=== PATIENT | male | born 1935 | race Caucasian/White ===

== ENCOUNTER 2018-11-07 02:10 | Inpatient (IN) | payer OTHER ==
[~2018-11-07] VITALS: Ht 180.3 cm; Wt 76.8 kg
[~2018-11-07 02:10] MED LIST: ASPI-498 OR; DOC100C PO; FURO1TAB31 PO; GABA300C10 PO; LANS15CA21 PO; METO25TA5 PO; TEMA30CA PO; TRAM100T37 PO; warfarin; warfarin sodium PO
[2018-11-07] MEDS ORDERED: fentaNYL CITRATE 100 MCG/2 ML VL IV ONE (04:00)
[2018-11-07] MEDS ORDERED: ONDANSETRON HCL 4 MG/2 ML VIAL IV ONE ×2 (04:00→09:30)
[2018-11-07 05:10] LABS: Basophils # (auto) 0.1 uL; Basophils % (auto) 1.4 % (0.0-2.0); Eosinophils # (auto) 0.1 uL; Eosinophils % (auto) 2.6 % (0.0-7.0); Hematocrit 37.1 % (41.0-53.0); Lymphocytes # (auto) 0.9 uL; Lymphocytes % (auto) 17.1 % (10.0-50.0); Mean Corpuscular Hemoglobin 30.2 pg (28.0-32.0); Mean Corpuscular Hgb Conc. 32.4 g/dL (32.0-36.0); Mean Corpuscular Volume 93.2 fL (80.0-100.0); Monocytes # (auto) 0.5 uL; Monocytes % (auto) 9.6 % (0.0-12.0); Neutrophils # (auto) 3.5 uL; Neutrophils % (auto) 69.3 % (37.0-80.0); Nucleated Red Blood Cells % 0.1 %; Platelet Count (auto) 170 10^3/uL (140-450); Red Blood Cells 3.98 10^6/uL (4.5-5.90); Red Cell Distribution Width 17.3 % (11.8-14.3); White Blood Cell 5.1 10^3/uL (4.4-10.8)
[2018-11-07 05:14] LABS: INR 0.99 (0.9-1.15); Partial Thromboplastin Time 29.6 sec (23.64-32.05)
[2018-11-07 05:24] LABS: Albumin 3.9 g/dL (3.4-5.0); Calcium 9.4 mg/dL (8.5-10.1)
[2018-11-07 05:29] LABS: BUN/Creatinine Ratio 17.9; Bilirubin, Total 0.5 mg/dL (0.2-1.0); Total Protein 7.3 g/dL (6.4-8.2)
[2018-11-07] MEDS ORDERED: AMIODARONE HCL 150 MG in D5W 5% 100 ML IV ONE (06:15)
[2018-11-07] MEDS ORDERED: AMIODARONE HCL (50 MG/ ML) 3 ML VIAL IV ONE (06:25)
[2018-11-07 06:26] LABS: Potassium 7.2 mmol/L (3.5-5.1)
[2018-11-07] MEDS ORDERED: CALCIUM CHL 100MG/ML 1,000 MG in D5W 5% 100 ML IV ONE ×4 (07:00→22:00)
[2018-11-07] MEDS ORDERED: ALBUTEROL SULF 2.5 MG/0.5ML(0.5%) NEB SOLN NEB ONE (07:00)
[2018-11-07] MEDS ORDERED: InsuLIN REG 1unit/0.01ml Soln (100units/ml) IV ONE ×3 (07:00→22:00)
[2018-11-07] MEDS ORDERED: DEXTROSE (50%) 50ML SYRG IV ONE ×3 (07:00→22:00)
[2018-11-07] MEDS ORDERED: SODIUM BICARBONATE 8.4 % INJ 50ML VIAL IV ONE ×2 (07:00→14:30)
[2018-11-07] MEDS ORDERED: SODIUM CHLORIDE 0.9% 250 ML IV ONE (07:15)
[2018-11-07 08:15] LABS: Basophils # (auto) 0 uL; Basophils % (auto) 0.6 % (0.0-2.0); Eosinophils # (auto) 0 uL; Eosinophils % (auto) 0.6 % (0.0-7.0); Hematocrit 35.7 % (41.0-53.0); Hemoglobin 11.9 g/dL (13.5-17.5); Lymphocytes # (auto) 1.3 uL; Lymphocytes % (auto) 19.8 % (10.0-50.0); Mean Corpuscular Hemoglobin 30.1 pg (28.0-32.0); Mean Corpuscular Hgb Conc. 33.4 g/dL (32.0-36.0); Mean Corpuscular Volume 90.2 fL (80.0-100.0); Monocytes # (auto) 0.7 uL; Monocytes % (auto) 10.9 % (0.0-12.0); Neutrophils # (auto) 4.6 uL; Neutrophils % (auto) 68.1 % (37.0-80.0); Nucleated Red Blood Cells % 0.1 %; Platelet Count (auto) 180 10^3/uL (140-450); Red Blood Cells 3.95 10^6/uL (4.5-5.90); Red Cell Distribution Width 16.8 % (11.8-14.3); White Blood Cell 6.7 10^3/uL (4.4-10.8)
[2018-11-07 08:28] LABS: Albumin 3.8 g/dL (3.4-5.0); BUN/Creatinine Ratio 17.2
[2018-11-07 08:30] LABS: Bilirubin, Total 0.5 mg/dL (0.2-1.0); Total Protein 7.2 g/dL (6.4-8.2)
[2018-11-07 08:37] LABS: Potassium 7.8 mmol/L (3.5-5.1)
[2018-11-07] MEDS ORDERED: HYDROmorphone HCL 2 MG/ML VL IV ONE ×2 (08:45→09:30)
[2018-11-07] MEDS ORDERED: ALUM & MAG HYDROX-SIMETH LIQ(MAALOX) 30 ML PO ONE (08:45)
[2018-11-07] MEDS ORDERED: SODIUM ZIRCONIUM CYCL 10 GM PAK PO ONE (08:45)
[2018-11-07] MEDS ORDERED: HEPARIN DRIP/D5W 100UNITS/ML 250 ML IV SCH (11:27)
[2018-11-07] MEDS ORDERED: HEPARIN SODIUM (PORCINE) 5000 UNITS/ML 1ML VIAL IV ONE (11:30)
[2018-11-07] MEDS ORDERED: ONDANSETRON HCL 4 MG/2 ML VIAL IV PRN (11:30)
[2018-11-07] MEDS ORDERED: NITROGLYCERIN 0.4 MG SL TAB SL PRN (11:30)
[2018-11-07] MEDS ORDERED: SODIUM CHLORIDE 0.9% 1,000 ML IV ONE (11:30)
[2018-11-07] MEDS ORDERED: ACETAMINOPHEN 325 MG TAB PO PRN (11:30)
[2018-11-07] MEDS ORDERED: traMADol HCL 50 MG TAB PO PRN (11:30)
[2018-11-07] MEDS: METOPROLOL TARTRATE 25 MG TAB PO SCH ×2 (12:06→22:00)
[2018-11-07 13:11] LABS: BUN/Creatinine Ratio 17.6; Calcium 9.5 mg/dL (8.5-10.1)
[2018-11-07 13:18] LABS: Potassium 6.5 mmol/L (3.5-5.1)
[2018-11-07 13:30] LABS: INR 1.07 (0.9-1.15); Partial Thromboplastin Time 29.9 sec (23.64-32.05)
[2018-11-07 14:08] LABS: Creatinine, Urine 113 mg/dL (30.0-125.0); Sodium Urine 83 mmol/L (40-220)
[2018-11-07 14:10] LABS: Urine Bacteria FEW /hpf (None Seen); Urine Blood 1+ /uL (Negative); Urine Hyaline Cast FEW /lpf (0 - 2); Urine Mucus FEW (None Seen); Urine Specific Gravity 1.016 (1.001-1.035); Urine WBC 12 /hpf (0 - 3)
[2018-11-07] MEDS: HEPARIN DRIP/D5W 100UNITS/ML 250 ML IV SCH (14:12)
[2018-11-07] MEDS ORDERED: SODIUM BICARBONATE 50ML VIAL 50 ML in SOD CHL 0.45% 1,000 ML IV SCH (14:15)
[2018-11-07] MEDS: BUMETANIDE 2.5mg/10ml (0.25 mg/ml) INJ IV SCH (16:09)
[2018-11-07] MEDS ORDERED: PROMETHAZINE HCL 25 MG/ML 1ML IV PRN (16:15)
[2018-11-07 20:08] LABS: Basophils # (auto) 0 uL; Basophils % (auto) 0.5 % (0.0-2.0); Eosinophils # (auto) 0 uL; Hematocrit 34.8 % (41.0-53.0); Hemoglobin 11.6 g/dL (13.5-17.5); Lymphocytes # (auto) 0.8 uL; Lymphocytes % (auto) 10.4 % (10.0-50.0); Mean Corpuscular Hemoglobin 30.3 pg (28.0-32.0); Mean Corpuscular Hgb Conc. 33.3 g/dL (32.0-36.0); Mean Corpuscular Volume 90.9 fL (80.0-100.0); Monocytes # (auto) 0.9 uL; Monocytes % (auto) 11.5 % (0.0-12.0); Neutrophils % (auto) 77.6 % (37.0-80.0); Platelet Count (auto) 170 10^3/uL (140-450); Red Blood Cells 3.83 10^6/uL (4.5-5.90); Red Cell Distribution Width 16.8 % (11.8-14.3); White Blood Cell 7.7 10^3/uL (4.4-10.8)
[2018-11-07 20:27] LABS: BUN/Creatinine Ratio 17.2; Magnesium 1.8 mg/dL (1.6-2.6)
[2018-11-07 20:38] LABS: Potassium 6.8 mmol/L (3.5-5.1)
[2018-11-07] MEDS: SODIUM BICARBONATE 50ML VIAL 50 ML in SOD CHL 0.45% 1,000 ML IV SCH (21:58)
[2018-11-07] MEDS ORDERED: BUMETANIDE 1mg/4ml VIAL (0.25mg/ml) IV ONE (22:00)
[2018-11-07] MEDS ORDERED: CALCIUM CHL(10%) 100MG/ML 10ML VIAL IV ONE (22:08)
[2018-11-07] MEDS ORDERED: BUMETANIDE 1mg/4ml VIAL (0.25mg/ml) ONE (22:16)
[2018-11-07] MEDS: SODIUM ZIRCONIUM CYCL 10 GM PAK PO SCH (22:32)
[2018-11-08] VITALS (63 sets, daily range): BP systolic 88–123; BP diastolic 46–84
[2018-11-08] MEDS: SODIUM BICARBONATE 50ML VIAL 50 ML in SOD CHL 0.45% 1,000 ML IV SCH ×2 (01:36→22:00)
[2018-11-08 02:54] LABS: INR 1.02 (0.9-1.15); Partial Thromboplastin Time 46.8 sec (23.64-32.05)
--- NOTE | 2018-11-08 05:30 | NUR ---
Pt being admitted to ICU ESTELLE MCGEE admitted to ICU via gurney on cardiac monitor technician, and portable 4L 02 via nasal cannula. Patient transfered to bed, connected to ICU monitoring and oxygen, and weighed by bedscale. Patient oriented to NONA LEE,primary RN, unit, room, bed, and unit policies regarding patient care and visiting hours.Alexander hung to gravity on bed rail. Right subclavian iv - clean/dry/intact. Repositioned for comfort. All questions and concerns addressed, patient verbalized understanding. NOTE:
[2018-11-08 06:10] LABS: Basophils # (auto) 0 uL; Basophils % (auto) 0.4 % (0.0-2.0); Eosinophils # (auto) 0 uL; Eosinophils % (auto) 0.2 % (0.0-7.0); Hematocrit 34.3 % (41.0-53.0); Hemoglobin 11.3 g/dL (13.5-17.5); Lymphocytes # (auto) 1.1 uL; Lymphocytes % (auto) 14.8 % (10.0-50.0); Mean Corpuscular Hemoglobin 29.9 pg (28.0-32.0); Mean Corpuscular Hgb Conc. 32.9 g/dL (32.0-36.0); Mean Corpuscular Volume 90.8 fL (80.0-100.0); Monocytes # (auto) 0.9 uL; Monocytes % (auto) 12.6 % (0.0-12.0); Neutrophils # (auto) 5.3 uL; Nucleated Red Blood Cells % 0.1 %; Platelet Count (auto) 166 10^3/uL (140-450); Red Blood Cells 3.78 10^6/uL (4.5-5.90); Red Cell Distribution Width 16.7 % (11.8-14.3); White Blood Cell 7.3 10^3/uL (4.4-10.8)
[2018-11-08 06:36] LABS: Albumin 3.3 g/dL (3.4-5.0); Magnesium 1.9 mg/dL (1.6-2.6)
[2018-11-08 06:38] LABS: Bilirubin, Total 0.8 mg/dL (0.2-1.0); Total Protein 6.4 g/dL (6.4-8.2)
[2018-11-08 06:44] LABS: Potassium 7.3 mmol/L (3.5-5.1)
[2018-11-08] MEDS ORDERED: CALCIUM CHL 100MG/ML 1,000 MG in D5W 5% 100 ML IV ONE (07:00)
[2018-11-08] MEDS ORDERED: DEXTROSE (50%) 50ML SYRG IV ONE ×3 (07:00→13:15)
[2018-11-08] MEDS ORDERED: InsuLIN REG 1unit/0.01ml Soln (100units/ml) SC ONE (07:00)
[2018-11-08] MEDS ORDERED: InsuLIN REG 1unit/0.01ml Soln (100units/ml) ONE (07:02)
[2018-11-08] MEDS ORDERED: DEXTROSE 50% SYRINGE 50 ML IV ONE (07:02)
[2018-11-08] MEDS ORDERED: CALCIUM GLUC 4.65 MEQ/10ML 10 ML IV ONE (07:07)
[2018-11-08] MEDS: SODIUM ZIRCONIUM CYCL 10 GM PAK PO SCH ×3 (07:15→21:59)
--- NOTE | 2018-11-08 07:25 | NUR ---
OPENING NOTE SHIFT REPORT RECEIVED AND ASSUMED CARE OF PT FROM NONA RN
--- NOTE | 2018-11-08 07:30 | NUR ---
REPORT GIVEN TO DAY SHIFT RN.
--- NOTE | 2018-11-08 08:10 | NUR ---
DR. THOMSON CALLED UPDATED ON PT STATUS AND LABS-K+ 7.3. ORDERS RECEIVED. WILL CONTINUE TO MONITOR
[2018-11-08] MEDS ORDERED: InsuLIN REG 1unit/0.01ml Soln (100units/ml) IV ONE ×2 (08:15→13:15)
[2018-11-08] MEDS ORDERED: BUMETANIDE INJECTION 12.5 MG in GIVE UN-DILUTED 0 ML IV SCH ×2 (08:15→17:45)
[2018-11-08 09:09] LABS: Uric Acid 5.9 mg/dL (3.5-7.2)
[2018-11-08] MEDS: BUMETANIDE 2.5mg/10ml (0.25 mg/ml) INJ IV SCH (09:33)
--- NOTE | 2018-11-08 09:40 | NUR ---
DR. THOMSON AT BEDSIDE SPOKE WITH FAMILY AT BEDSIDE. UPDATED ON PT STATUS. VERBALIZES UNDERSTANDING OF PT STATUS AND PLAN. ORDERS RECEIVED
[2018-11-08] MEDS ORDERED: DOCUSATE SOD 100 MG CAP PO SCH (10:00)
[2018-11-08] MEDS ORDERED: FLUDROCORTISONE ACETATE 0.1 MG TAB PO SCH (10:00)
[2018-11-08 10:15] LABS: INR 1.04 (0.9-1.15); Partial Thromboplastin Time 57.5 sec (23.64-32.05)
[2018-11-08] MEDS: PANTOPRAZOLE 40 MG TAB PO SCH (10:26)
[2018-11-08] MEDS: METOPROLOL TARTRATE 25 MG TAB PO SCH ×2 (10:26→22:00)
[2018-11-08] MEDS: ASPirin-EC 81 mg tab PO SCH (10:26)
--- NOTE | 2018-11-08 10:57 | NUR ---
PTT 57.5 NO BOLUS/NO CHANGE PER PROTOCOL
--- NOTE | 2018-11-08 12:00 | NUR ---
SPOKE WITH DR. THOMSON AWARE OF K+ 6.6 TRENDING DOWN. CONTINUE ON CURRENT PLAN. REPEAT LABS ORDERED. NO OTHER ORDERS AT THIS TIME
[2018-11-08] MEDS: HEPARIN DRIP/D5W 100UNITS/ML 250 ML IV SCH (12:19)
[2018-11-08 12:55] LABS: Creatinine, Urine 113 mg/dL (30.0-125.0); Sodium Urine 83 mmol/L (40-220)
[2018-11-08 12:58] LABS: BUN/Creatinine Ratio 18.7; Calcium 10.2 mg/dL (8.5-10.1)
[2018-11-08 13:00] LABS: Potassium 6.6 mmol/L (3.5-5.1)
--- NOTE | 2018-11-08 13:00 | NUR ---
PAGED DR. RODRIGUEZ REGARDING TROPONIN LEVEL
[2018-11-08] MEDS ORDERED: ALBUTEROL SULF 2.5 MG/0.5ML(0.5%) NEB SOLN NEB ONE (13:15)
[2018-11-08] MEDS ORDERED: DOPamine 1600MCG/ML D5W 250 ML IV SCH (14:15)
--- NOTE | 2018-11-08 14:30 | NUR ---
RECEIVED ACCURATE LIST OF MEDICATIONS FROM SPOUSE
--- NOTE | 2018-11-08 15:40 | NUR ---
TURNED OFF DOPAMINE DUE TO INCREASED HEART RATE
[2018-11-08] MEDS ORDERED: LACTULOSE 20Gm/30ML SOLN PO ONE (16:15)
[2018-11-08] MEDS ORDERED: POLYETHYLENE GLYCOL 17 GM PWDR PO PRN (16:15)
--- NOTE | 2018-11-08 17:00 | NUR ---
PTT 58.4 NO CHANGE NO BOLUS PER PROTOCOL 2ND THERAPEUTIC PTT LEVEL
[2018-11-08] MEDS: DOCUSATE SOD 100 MG CAP PO SCH ×2 (17:12→21:59)
[2018-11-08 17:24] LABS: INR 1.07 (0.9-1.15); Partial Thromboplastin Time 58.4 sec (23.64-32.05)
--- NOTE | 2018-11-08 17:25 | NUR ---
PICTURES TAKEN OF SKIN ISSUES PT ARRIVED TO UNIT WITH
[2018-11-08 17:28] LABS: Calcium 9.7 mg/dL (8.5-10.1); Potassium 4.9 mmol/L (3.5-5.1)
[2018-11-08 17:30] LABS: BUN/Creatinine Ratio 17.9
--- NOTE | 2018-11-08 17:42 | NUR ---
SPOKE WITH DR. THOMSON REGARDING PT LABS. ORDERS RECEIVED
[2018-11-08 17:47] LABS: Albumin 3.1 g/dL (3.4-5.0); Bilirubin, Direct 0.2 mg/dL (0-0.2); Magnesium 1.6 mg/dL (1.6-2.6)
[2018-11-08 17:49] LABS: Bilirubin, Total 0.6 mg/dL (0.2-1.0); Total Protein 6.3 g/dL (6.4-8.2)
--- NOTE | 2018-11-08 18:44 | NUR ---
SPOKE WITH DR. THOMSON ORDERS RECEIVED
--- NOTE | 2018-11-08 19:00 | NUR ---
opening note ASSUMED CARE OF PATIENT AT THIS TIME. REPORT RECEIVED FROM DAY SHIFT RN. POC REVIEWED. HEAD TO TOE ASSESSMENT COMPLETE, SEE INTERVENTION SPREADSHEET FOR COMPLETE DETAILS. RECEIVED PT AWAKE AND ALERT X3 WITH PERIODS OF CONFUSION OR INAPPROPRIATE RESPONSES. PT FOLLOWS COMMANDS, PT PLEASANT AND COOPERATIVE. ABLE TO ASSIST WITH TURNS. CALL LIGHT WITHIN REACH. SAFETY PRECAUTIONS IN PLACE. RECEIVED PT ON 4 LTS NC. PT DESATS WHEN TURNING AND TALKING. IV SITE BENIGN. BED LOCKED AND IN LOWEST POSITIONS. PT DENIES PAIN. VSS. WILL MONITOR PT CLOSELY.
--- NOTE | 2018-11-08 19:05 | NUR ---
CLOSING NOTE SHIFT REPORT GIVEN AND CARE ENDORSED TO JANICE PAUL
[2018-11-08 22:58] LABS: INR 1.05 (0.9-1.15); Partial Thromboplastin Time 59.8 sec (23.64-32.05)
--- NOTE | 2018-11-08 23:47 | NUR ---
BED ANDUJAR PT PLACED ON BED ANDUJAR. HAD SMALL BROWN, LIQUID BM. PT CLEANED AND REPOSITIONED. PT TOLERATED WELL.
--- NOTE | 2018-11-08 23:49 | NUR ---
PTT RESULT 59.9. NO BOLUS NO CHANGE
[2018-11-09] VITALS (78 sets, daily range): BP systolic 76–113; BP diastolic 38–69
--- NOTE | 2018-11-09 04:00 | NUR ---
Bed bath pt had smear of bm. Pt cleaned and repositioned. Pt tolerated well.
[2018-11-09 04:43] LABS: Basophils # (auto) 0 uL; Basophils % (auto) 0.7 % (0.0-2.0); Eosinophils # (auto) 0.1 uL; Hematocrit 31.1 % (41.0-53.0); Hemoglobin 10.5 g/dL (13.5-17.5); Lymphocytes # (auto) 1.3 uL; Lymphocytes % (auto) 19.4 % (10.0-50.0); Mean Corpuscular Hemoglobin 30.3 pg (28.0-32.0); Mean Corpuscular Hgb Conc. 33.9 g/dL (32.0-36.0); Mean Corpuscular Volume 89.3 fL (80.0-100.0); Monocytes # (auto) 0.9 uL; Neutrophils # (auto) 4.4 uL; Neutrophils % (auto) 64.9 % (37.0-80.0); Nucleated Red Blood Cells % 0.1 %; Platelet Count (auto) 145 10^3/uL (140-450); Red Blood Cells 3.48 10^6/uL (4.5-5.90); Red Cell Distribution Width 16.4 % (11.8-14.3); White Blood Cell 6.8 10^3/uL (4.4-10.8)
[2018-11-09 05:09] LABS: Magnesium 1.4 mg/dL (1.6-2.6); Potassium 4.7 mmol/L (3.5-5.1)
--- NOTE | 2018-11-09 05:15 | NUR ---
status change/confusion pt insisting that he needs to home. Pt states, "I don't feels safe here, I've been hearing what they are saying out there and it's not good." Pt wants to call police to come get him. Pt reassured that pt is in the hospital and the pt is safe. Spoke with daughter on the phone. Daughter will come and visit him soon.
[2018-11-09 05:16] LABS: BUN/Creatinine Ratio 18.1; Bilirubin, Direct 0.2 mg/dL (0-0.2); Bilirubin, Total 0.7 mg/dL (0.2-1.0); Calcium 9.1 mg/dL (8.5-10.1); Phosphorus 2.7 mg/dL (2.5-4.90); Total Protein 5.9 g/dL (6.4-8.2)
[2018-11-09] MEDS: DOCUSATE SOD 100 MG CAP PO SCH ×3 (06:00→22:00)
--- NOTE | 2018-11-09 06:05 | NUR ---
daughter at bedside to visit with patient. All questions addressed at this time.
--- NOTE | 2018-11-09 07:05 | NUR ---
OPENING NOTE SHIFT REPORT GIVE BACK RECEIVED AND ASSUMED CARE OF PT FROM JANICE PUAL
--- NOTE | 2018-11-09 07:30 | NUR ---
BUMEX TURNED OFF DUE TO LOW BLOOD PRESSURE. DR. THOMSON NOTIFIED AND AWARE
[2018-11-09] MEDS: SODIUM BICARBONATE 50ML VIAL 50 ML in SOD CHL 0.45% 1,000 ML IV SCH ×2 (09:26→23:22)
[2018-11-09] MEDS: HEPARIN DRIP/D5W 100UNITS/ML 250 ML IV SCH (09:41)
[2018-11-09] MEDS: METOPROLOL TARTRATE 25 MG TAB PO SCH ×2 (10:00→22:00)
--- NOTE | 2018-11-09 10:15 | NUR ---
DR. SCHAFFER AT BEDSIDE ORDERS RECEIVED
[2018-11-09] MEDS: BUMETANIDE 1 MG TAB PO SCH (10:45)
--- NOTE | 2018-11-09 11:28 | NUR ---
NUTRITION CONSULT/ASSESSMENT NOTES Please refer to link notes of nutrition screen form filed under the intervention section of the plan of care for further details. Est. Needs: 1900 kcal to 2300 kcal (25-30 kcal/kgBW), 61 gms to 76 gms pro (0.8-1.0 gms/kgBW). Will continue to monitor pertinent labs and reassess nutrient need prn Thank you for this consult. Addendum: 11/09/18 at [address] Amended: Links added.
[2018-11-09] MEDS: ASPirin-EC 81 mg tab PO SCH (11:50)
[2018-11-09] MEDS: PANTOPRAZOLE 40 MG TAB PO SCH (11:50)
[2018-11-09] MEDS: FLUDROCORTISONE ACETATE 0.1 MG TAB PO SCH (11:51)
[2018-11-09] MEDS: MAGNESIUM SULFATE 1GM/100ML 100 ML IV SCH ×2 (11:51→14:01)
--- NOTE | 2018-11-09 12:00 | NUR ---
EKG DONE FOR RHYTHM OF A FIB ON MONITOR.
--- NOTE | 2018-11-09 12:07 | NUR ---
DR. MENDOZA AT BEDSIDE ORDERS RECEIVED
--- NOTE | 2018-11-09 13:51 | NUR ---
Assessment Pt is an 83 yr old alert and oriented male. Pt in ICU attended by his step-daughter and . Pt's step-daughter, Mesha, is his person of contact at [phone]. Pt lives with Nephew and . Pt's is on Hospice services. Pt's step-daughter cooks and his niece cleans. Pt ambulates with the assistance of a walker or cane, pt uses in-home 02. Pt has no interest in advanced directive at this time. Pt receives VA benefits. Pt has acute kidney failure and states that he is getting close to the point of getting put on dialysis. Pt's step-daughter brought up the conversation about hospice services but the pt feels that he is not ready for those services but would benefit from help. RENU educated pt on the Aid and attendance program that helps veterans get caregivers. Pt was very interested. RENU called Josefa Martinez to connect her to the pt for help with the program. RENU also educated the patient of the uses of HH. Pt expressed interest in those services if he qualifies. RENU informed pt's nurse. Further d/c needs will be assessed closer to d/c. Addendum: 11/09/18 at 1403 by ELIS MCGOWAN Amended: Links added.
--- NOTE | 2018-11-09 14:15 | NUR ---
SPOKE WITH DR. JORDAN REGARDING PT'S HEART RATE AND RHYTHM. ORDERS RECEIVED
--- NOTE | 2018-11-09 14:15 | NUR ---
DR. JORDAN AWARE OF PT'S RHYTHM-SINUS TACHYCARDIA/A FIB AND LOW BLOOD PRESSURE. DIGOXIN ORDERED BUT HELD DUE TO PT'S LOW BP
[2018-11-09] MEDS ORDERED: DIGOXIN 0.25 MG TAB PO ONE (14:30)
[2018-11-09] MEDS ORDERED: FURO20TA3 PO (14:46)
[2018-11-09] MEDS ORDERED: APIX2.5T PO (14:46)
[2018-11-09] MEDS ORDERED: TAMS0.4C36 PO (14:46)
[2018-11-09] MEDS ORDERED: LISI2.5T47 PO (14:46)
[2018-11-09] MEDS ORDERED: RANI150C11 PO (14:46)
[2018-11-09] MEDS ORDERED: ATOR1TAB PO (14:46)
[2018-11-09] MEDS ORDERED: METO-169 PO (14:46)
[2018-11-09] MEDS ORDERED: ISOS30TA4 PO (14:46)
--- NOTE | 2018-11-09 15:25 | NUR ---
MODERATE SOFT BM PT CLEANSED WITH SOAP AND WATER. LINEN CHANGE
[2018-11-09] MEDS: NOREPINEPHRINE 8 MG/250ML KIT 250 ML IV SCH (17:34)
--- NOTE | 2018-11-09 19:05 | NUR ---
CLOSING NOTE SHIFT REPORT AND CARE ENDORSED TO NONA PAUL
--- NOTE | 2018-11-09 19:30 | NUR ---
OPENING SHIFT RECEIVED REPORT FROM DAY SHIFT RN. ASSUMED CARE OF PATIENT. PATIENT IN BED WATCHING TV WITH NO SIGNS OR SYMPTOMS OF SOB, PAIN OR DISTRESS. CURRENTLY ON 4L 02 NASAL CANNULA, 02 SAT - 95%. REORIENTED PATIENT TO ENVIRONMENT AND SITUATION. REPOSITIONED FOR COMFORT. BERG HUNG TO GRAVITY ON BED RAIL. RIGHT SUBCLAVIAN - CLEAN/DRY/INTACT. BED IN LOWEST POSITION, SIDE RAILS UPX2, CALL LIGHT WITHIN REACH. WILL CONTINUE TO MONITOR.
[2018-11-10] VITALS (36 sets, daily range): BP systolic 87–123; BP diastolic 47–76
[2018-11-10 03:51] LABS: Basophils # (auto) 0 uL; Basophils % (auto) 0.3 % (0.0-2.0); Eosinophils # (auto) 0.1 uL; Eosinophils % (auto) 1.8 % (0.0-7.0); Hematocrit 29.9 % (41.0-53.0); Hemoglobin 10.1 g/dL (13.5-17.5); Lymphocytes # (auto) 1.3 uL; Lymphocytes % (auto) 20.2 % (10.0-50.0); Mean Corpuscular Hemoglobin 30.3 pg (28.0-32.0); Mean Corpuscular Hgb Conc. 33.9 g/dL (32.0-36.0); Mean Corpuscular Volume 89.3 fL (80.0-100.0); Monocytes # (auto) 0.9 uL; Monocytes % (auto) 13.2 % (0.0-12.0); Neutrophils # (auto) 4.2 uL; Neutrophils % (auto) 64.5 % (37.0-80.0); Platelet Count (auto) 142 10^3/uL (140-450); Red Blood Cells 3.34 10^6/uL (4.5-5.90); Red Cell Distribution Width 16.1 % (11.8-14.3); White Blood Cell 6.6 10^3/uL (4.4-10.8)
[2018-11-10 04:17] LABS: Potassium 4.3 mmol/L (3.5-5.1)
[2018-11-10 04:22] LABS: INR 1.01 (0.9-1.15); Partial Thromboplastin Time 47.6 sec (23.64-32.05)
[2018-11-10 04:23] LABS: BUN/Creatinine Ratio 17.5; Magnesium 1.8 mg/dL (1.6-2.6)
[2018-11-10] MEDS: HEPARIN DRIP/D5W 100UNITS/ML 250 ML IV SCH (05:15)
--- NOTE | 2018-11-10 06:40 | NUR ---
HEPARIN GTT PTT -47.6, HEPARIN INCREASED PER PROTOCOL.
[2018-11-10] MEDS: DOCUSATE SOD 100 MG CAP PO SCH ×3 (06:44→22:00)
--- NOTE | 2018-11-10 07:00 | NUR ---
REPORT GIVEN, CARE ENDORSED TO DAY SHIFT RN.
--- NOTE | 2018-11-10 07:17 | NUR ---
SHIFT OPENING NOTE PATIENT AOX3, MOVING ALL EXTREMITIES AND ANSWERING QUESTIONS APPROPRIATELY. PATIENT ON 4LNC, LUNGS CLEAR THROUGHOUT. ABDOMEN SOFT AND NONTENDER, BERG DRAINING CLEAR, YELLOW URINE WITH BAG HUNG BELOW BLADDER. SKIN INTEGRITY SEE ASSESSMENT. PLAN OF CARE DISCUSSED WITH PATIENT WITH ALL QUESTIONS AND CONCERNS ADDRESSED AT THIS TIME
[2018-11-10] MEDS: SODIUM BICARBONATE 50ML VIAL 50 ML in SOD CHL 0.45% 1,000 ML IV SCH ×3 (09:43→17:54)
--- NOTE | 2018-11-10 09:45 | NUR ---
PARTIAL LINEN CHANGE PERFORMED AT THIS TIME
[2018-11-10] MEDS: METOPROLOL TARTRATE 25 MG TAB PO SCH ×2 (09:57→22:00)
[2018-11-10] MEDS: BUMETANIDE 1 MG TAB PO SCH (09:58)
[2018-11-10] MEDS: FLUDROCORTISONE ACETATE 0.1 MG TAB PO SCH (09:58)
[2018-11-10] MEDS: ASPirin-EC 81 mg tab PO SCH (09:58)
[2018-11-10] MEDS: PANTOPRAZOLE 40 MG TAB PO SCH (09:58)
[2018-11-10] MEDS ORDERED: BUMETANIDE 2.5mg/10ml (0.25 mg/ml) INJ IV SCH (10:00)
[2018-11-10 13:43] LABS: INR 1.03 (0.9-1.15); Partial Thromboplastin Time 48.3 sec (23.64-32.05)
--- NOTE | 2018-11-10 14:22 | NUR ---
DR. JORDAN PAGED AWAITING CALLBACK
--- NOTE | 2018-11-10 15:21 | NUR ---
DR. JORDAN CALLBACK ORDERS RECEIVED
--- NOTE | 2018-11-10 15:29 | NUR ---
DR. BEST AT BEDSIDE
--- NOTE | 2018-11-10 16:39 | NUR ---
[employer] PER FAMILY WISHES. SPOKE WITH DEIDRA REGARDING BUTTONHOLE MARKER TIME Addendum: 11/10/18 at 1720 by Mario Andrea RN WRONG PATIENT
[2018-11-10] MEDS: cefTRIAXone 1GM/50ML D5W 50 ML IV SCH (16:50)
[2018-11-10] MEDS ORDERED: WARFARIN SODIUM 5 MG TAB PO ONE (17:00)
[2018-11-10] MEDS: NOREPINEPHRINE 8 MG/250ML KIT 250 ML IV SCH (17:19)
--- NOTE | 2018-11-10 17:43 | NUR ---
PATIENT WAS UP WITH RN. PATIENT BECAME DIZZY AND WAS PLACED BACK IN BED. WILL ATTEMPT P.T. EVALUATION TOMORROW.
--- NOTE | 2018-11-10 18:52 | NUR ---
PATIENT TRANSFERRED TO [facility] VIA ACLS GUIDELINES AND ALL PATIENT BELONGINGS
--- NOTE | 2018-11-10 19:15 | NUR ---
Received Pt from ICU 110 to MARIA EUGENIA 263 Pt awake and alert. Breathing even and nonlabored, on O2 NC 4 LPM, no s/s of distress. Denied pain. TLC at right subclavian, tiny leaking observed, will continue to monitor. 3 ports flushed well, positive blood return. Alexander's catheter hung to gravity with clear yellowish urine. Bed in low position, call light with in reach, all alarms are audible, fall and safety precaution in place. Instruct on POC to Pt and call for help, will continue to monitor q1 and as needed. Pt asked to use a restroom for BM. Provided Pt with bedpan due to dizziness.
--- NOTE | 2018-11-10 19:25 | NUR ---
Desaturation, no s/s of distress POX showed 80's %. Pt breathing even and nonlabored, lungs sound clear, no s/s of distress. Pt moving hands and tried to use cell phone. Pt's fingers were cold. Increased O2NC 4LPM to 5LPM, will continue to monitor and change POX probe. Addendum: 11/10/18 at 2104 by Preet Burnette RN 2000pm POX probe changed. POX alternating from 80's to mid 90's sometimes due to movement of fingers. No s/s of distress. Pt asked to call his and tried to use room phone to contact his . Pt denied dinner, stated that he ate some sweets before transferred from ICU. Continue monitoring.
--- NOTE | 2018-11-10 19:40 | NUR ---
Elimination Pt passed a small amount of pasty brown stool. Cleaned blaine rectal area. Pt turned on bed by self well. Tolerated well. Continue care.
--- NOTE | 2018-11-10 22:05 | NUR ---
Condition update Pt lying on bed with eyes closed, arousal by voice. Breathing even and nonlabored, O2 NC 5 LPM, POX low 90's to mid 90's. BP slightly on low side, will hold BP med for now, see details in EMAR. Continue care.
--- NOTE | 2018-11-10 22:20 | NUR ---
Elimination Pt woke up and asked to use a restroom. Assisted Pt OOB with 2-person assist. Pt walked 2 steps to BSC, no dizziness, desaturation 80's with activities and room air. Connected Pt back to portable O2 6LPM. 2240pm Pt passed a moderate amount of soft brown BM. Pt tried to get up from the BSC by self despite instruction deportation examiner light use. Reminded Pt to call and do not get out of bed or BSC by self. Perirectal and perineal cleaned, z-guard applied. Pt back to bed with out incident. Pt had SOB with exertion. Fall and safety measures in place. Continue care.
[2018-11-11] VITALS (8 sets, daily range): BP systolic 106–120; BP diastolic 48–75
--- NOTE | 2018-11-11 | NUR ---
Condition update Pt slept, v/s and condition stable. Continue care.
--- NOTE | 2018-11-11 02:10 | NUR ---
Desaturation/ sleep apnea Pt in deep sleeping with periodic apneic episode, fluctuating of POX from 80's to 95%. Increased O2NC to 6LPM to help maintain POX. Other v/s and condition stable. Continue care.
--- NOTE | 2018-11-11 03:25 | NUR ---
Condition update Pt woke up, talked on the cellphone. Asked to use a restroom, assisted Pt with the bedpan. Pt did not pass BM, only gases. Refused AM care for now. Pt asked to do AM care later and Pt will let this nurse knows. Continue care.
[2018-11-11] MEDS: DOCUSATE SOD 100 MG CAP PO SCH ×2 (06:00→13:27)
[2018-11-11] MEDS: SODIUM BICARBONATE 50ML VIAL 50 ML in SOD CHL 0.45% 1,000 ML IV SCH (06:21)
[2018-11-11 06:27] LABS: Basophils # (auto) 0.1 uL; Basophils % (auto) 0.9 % (0.0-2.0); Eosinophils # (auto) 0.2 uL; Eosinophils % (auto) 3.8 % (0.0-7.0); Hemoglobin 9.7 g/dL (13.5-17.5); Lymphocytes # (auto) 0.9 uL; Lymphocytes % (auto) 15.2 % (10.0-50.0); Mean Corpuscular Hemoglobin 30.6 pg (28.0-32.0); Mean Corpuscular Hgb Conc. 33.5 g/dL (32.0-36.0); Mean Corpuscular Volume 91.3 fL (80.0-100.0); Monocytes # (auto) 0.9 uL; Monocytes % (auto) 14.8 % (0.0-12.0); Neutrophils # (auto) 3.9 uL; Neutrophils % (auto) 65.3 % (37.0-80.0); Platelet Count (auto) 142 10^3/uL (140-450); Red Blood Cells 3.18 10^6/uL (4.5-5.90); Red Cell Distribution Width 16.7 % (11.8-14.3)
[2018-11-11 06:45] LABS: BUN/Creatinine Ratio 18.5; Calcium 7.9 mg/dL (8.5-10.1); Magnesium 1.7 mg/dL (1.6-2.6); Potassium 3.4 mmol/L (3.5-5.1)
[2018-11-11 07:01] LABS: INR 1.06 (0.9-1.15)
--- NOTE | 2018-11-11 08:00 | NUR ---
Opening Shift Note Assumed care of patient, laying in bed, eyes closed, arousable to voice, oriented x2, re-oriented to time and place. No S/S of distress/SOB on exertion or pain. Patient on 6 LPM oxygen via nasal, saturation 99%, decreased oxygen to 4 LPM. See interventions for complete assessment. Bed locked on low position, side rails up x2, bed alarms on at all times, call ferrell within reach, instructed on POC and to call for assist PRN, will continue to monitor for changes Q1hr and PRN.
[2018-11-11] MEDS: BUMETANIDE 1 MG TAB PO SCH (09:13)
[2018-11-11] MEDS: FLUDROCORTISONE ACETATE 0.1 MG TAB PO SCH (09:13)
[2018-11-11] MEDS: METOPROLOL TARTRATE 25 MG TAB PO SCH (09:14)
[2018-11-11] MEDS: ASPirin-EC 81 mg tab PO SCH (09:14)
[2018-11-11] MEDS: PANTOPRAZOLE 40 MG TAB PO SCH (09:14)
--- NOTE | 2018-11-11 09:37 | NUR ---
Patient ambulated one lap around nurse station with [place] PT using walker, fall precautions in placed. Patient's oxygen saturation dropped to low 80's after ambulation. Patient sat on bedside chair and connected to 4 LPM oxygen via nasal cannula, patient's saturation went back up to 90's. Will continue to monitor.
[2018-11-11] MEDS ORDERED: ENOXAPARIN SOD 30 MG/0.3 ML SYRINGE SC SCH (10:00)
--- NOTE | 2018-11-11 10:53 | NUR ---
Nutrition Follow-up Notes Wt.: 76.8 kg PO intake remains variable with intake between 0-100% x 3 days, with improvement today. Currently on soft diet with renal diet (2 gm K) and is tolerating well without reported GI distress. No reported difficulty chewing or swallowing with current diet texture. Est. Needs: 1900 kcal to 2300 kcal (25-30 kcal/kgBW), 61 gms to 76 gms pro (0.8-1.0 gms/kgBW). Will continue to monitor pertinent labs and reassess nutrient need prn Labs: K 3.4L, BUN 43H, Cr 2.32H, Ca 7.9L, ALB 3L, POC Gluc <180 mg/dL Skin: Jose 14, mod risk, hyperpigmentation of the BLE's GI: Last BM x 1 today PES: 1.) Altered nutrition related lab values RT acute/chronic medical condition AEB hyperglycemia, elev. renal labs, low ALT, Mg, elev.Trop I and mild hypoalbuminemia (ongoing) 2.) Increased nutrient needs RT current/chronic medical status AEB mild hypoalbuminemia, NPO (ongoing) Monitor: Weight trends, PO intake >75% estimated needs, skin integrity, GI tract function, labs (renal) F/U: MR 3-5 days Rec. 1) Continue Renal diet 2 gm K w/soft texture as ordered and as tolerated. 2) If PO intake <75% by following assessment, consider ONS Ensure Enlive BID w/meals for supplementation 3) Continue POC as ordered
--- NOTE | 2018-11-11 12:00 | NUR ---
Patient's Guillermina and daughter Mesha at bedside, updated on patient's status and POC. Family verbalized understanding. All questions and concerns addressed.
[2018-11-11] MEDS ORDERED: POTASSIUM EFFERVESENT TAB 25 MEQ PO ONE (12:45)
--- NOTE | 2018-11-11 13:00 | NUR ---
Dr Lui at bedside, updated on patient's status. Informed Dr Childs is asking clearance to discharge patient from Nephrology standpoint. verbalized understanding. Patient seen and examined and states "Yes, patient may go home but he needs to see me two weeks after discharge with BMP report." Will inform Dr Childs.
--- NOTE | 2018-11-11 13:25 | NUR ---
Paged Dr Guerrero and called back, informed Dr Childs is asking discharge clearance from cardiology standpoint, verbalized understanding and states "Yes, patient is ok to go home." Will inform Dr Childs.
--- NOTE | 2018-11-11 13:28 | NUR ---
Colace held at this time, patient already had two soft bowel movement since beginning of shift.
[2018-11-11] MEDS ORDERED: DOCU100C8 PO (16:31)
[2018-11-11] MEDS ORDERED: MET25T PO (16:31)
[2018-11-11] MEDS ORDERED: FLU01T PO (16:31)
[2018-11-11] MEDS ORDERED: CEPH250C PO ×2 (16:31→16:33)
[2018-11-11] MEDS ORDERED: WARPRX PO (16:31)
[2018-11-11] MEDS ORDERED: BUME1TAB3 PO (16:31)
--- NOTE | 2018-11-11 16:31 | NUR ---
Discharge planning per consult, patient has orders for Home Health. Referral faxed to [facility], the [facility], and [facility]erral dept. Placed a follow up call to [facility], spoke with Elyssa, and she advised they could not accept because they do not have the coverage, and are currently overbooked. Will follow up with Eddi on 11.12.18 regarding alternative home health agencies they are contracted with. Addendum: 11/11/18 at 1635 by LANDY RODRIGUEZ SS Amended: Links added. Addendum: 11/11/18 at 1644 by LANDY RODRIGUEZ SS Disregard above note....entered on wrong patient. [facility] WILL accept this patient, request for auth was sent to ALON[facility].
--- NOTE | 2018-11-11 16:43 | NUR ---
D/C Planning Per consult for Home health for safety evaluation and physical therapy. Contacted [facility]:( [phone]) Fax:) faxed medical records. Per Elyssa from [facility] Pt has been accepted and service to start within 48hrs upon d/c day. Contacted [facility] ph:) Fax:) faxed medical records. Followed up called to [facility] spoke to Elyssa. Elyssa from [facility] advised me authorization was received. Addendum: 11/11/18 at 1652 by FERNY SARAH Amended: Links added.
[2018-11-11] MEDS ORDERED: WARFARIN SODIUM 5 MG TAB PO ONE (17:00)
--- NOTE | 2018-11-11 17:08 | NUR ---
Spoke to Wine Steward/Stewardess Baylee over the phone, confirmed if home health is already set up and if patient can be discharge home, watch caser states "Yes, everything is already set up with [facility], patient can go home."
--- NOTE | 2018-11-11 17:27 | NUR ---
Spoke to patient's daughter Mesha and informed patient has a discharge order with home health already set up, daughter verbalized understanding and states "Ok. I will be there to pick him up."
[2018-11-11] MEDS: cefTRIAXone 1GM/50ML D5W 50 ML IV SCH (17:59)
--- NOTE | 2018-11-11 18:20 | NUR ---
Paged Dr Hightower and called back. Received telephone order to discontinue engel catheter and PICC line. Orders read back and verified. Will carry out.
--- NOTE | 2018-11-11 18:30 | NUR ---
Engel catheter dc'd Order to discontinue engel catheter. Engel dc'd with clean technique following deflation of balloon. Patient tolerated well with no complaints of pain. Continue care.
--- NOTE | 2018-11-11 18:36 | NUR ---
Discharge MRSA nasal swab sent to lab
--- NOTE | 2018-11-11 20:15 | NUR ---
Patient's son Hernan at bedside. Discharge packet, follow-up instructions and home instructions given to patient and son Hernan. Patient and Hernan verbalized understanding.
--- NOTE | 2018-11-11 20:20 | NUR ---
RT subclavian TLC discontinued by Nicole PAUL. Pressure dressing applied. No bleeding noted.
--- NOTE | 2018-11-11 20:30 | NUR ---
Discharge instructions given as ordered. Instructed patient and son Hernan to follow up with PMD, Dr Guerrero, Dr Lui, Ortho. Patient and significant others to call MD's office to make appoinment since it's already after clinic hours when discharge order was given. All questions and concerns addressed. Patient and son verbalized understanding. Patient taken to vehicle via wheelchair with all personal belongings, accompanied by staff and family member. No distress noted at time of departure. BP 120/75, HR 97, RR 11, oxygen saturation 91% at 4LPM oxygen via nasal cannula.
== END 2018-11-11 20:25 | disposition home health service (06) | DRG 280 ==
LOC: EDBD 02:10 → ER 02:18 → TELE 02:19 → ICU WEST 11-08 05:33 → DOU IN ICU 11-10 18:54
PROVIDERS: ADMIT Internal Medicine; ATTEND Internal Medicine
DX: I21.4 Non-ST elevation (NSTEMI) myocardial infarction (principal); N17.0 Acute kidney failure with tubular necrosis; I13.0 Hypertensive heart and chronic kidney disease with heart failure and stage 1 through stage 4 chronic kidney disease, or unspecified chronic kidney disease; E27.40 Unspecified adrenocortical insufficiency; E87.2 Acidosis; I47.2 Ventricular tachycardia; M48.54XA Collapsed vertebra, not elsewhere classified, thoracic region, initial encounter for fracture; N39.0 Urinary tract infection, site not specified; N18.3 Chronic kidney disease, stage 3 (moderate); I50.9 Heart failure, unspecified; E87.5 Hyperkalemia; K21.9 Gastro-esophageal reflux disease without esophagitis; G47.00 Insomnia, unspecified; E11.22 Type 2 diabetes mellitus with diabetic chronic kidney disease; E86.1 Hypovolemia; E11.42 Type 2 diabetes mellitus with diabetic polyneuropathy; I25.10 Atherosclerotic heart disease of native coronary artery without angina pectoris; I48.91 Unspecified atrial fibrillation; K59.00 Constipation, unspecified; Z86.73 Personal history of transient ischemic attack (TIA), and cerebral infarction without residual deficits; I25.2 Old myocardial infarction; Z88.5 Allergy status to narcotic agent; Z95.1 Presence of aortocoronary bypass graft; Z79.52 Long term (current) use of systemic steroids; Z79.01 Long term (current) use of anticoagulants; Z80.0 Family history of malignant neoplasm of digestive organs; Z80.8 Family history of malignant neoplasm of other organs or systems; Z87.891 Personal history of nicotine dependence; Z79.899 Other long term (current) drug therapy
CPT/HCPCS: 36415; 71045; 74176; 76775; 80048; 80053; 80076; 81001; 82306; 82550; 82570; 82962; 83036; 83735; 83935; 83970; 84100; 84133; 84300; 84484; 84550; 85025; 85610; 85730; 87081; 93005; 93306; 94644; 96361; 96365; 96375; 99291; G0378; J0696; J1815; J2405; J7060